=== PATIENT | female | born 2000 | race American Indian/Alaskan Native ===

== ENCOUNTER 2021-10-21 04:11 | Outpatient (CLI) | payer OTHER ==
[2021-10-21 07:17] VITALS: BP 107/68
== END 2021-10-21 07:58 | disposition home or self-care (01) ==
LOC: TRG 04:11 → APU 04:14 → TRG 07:58
PROVIDERS: ATTEND Obstetrics & Gynecology
DX: O62.9 Abnormality of forces of labor, unspecified (principal); O48.0 Post-term pregnancy; Z3A.40 40 weeks gestation of pregnancy; Z87.891 Personal history of nicotine dependence
CPT/HCPCS: Q0177

== ENCOUNTER 2021-10-21 13:40 | Inpatient (IN) | payer OTHER ==
[2021-10-21] MEDS ORDERED: OXYTOCIN 10 UNIT/1 ML INJ IM PRN (14:17)
[2021-10-21] MEDS ORDERED: ACETAMINOPHEN 325 MG TAB PO PRN (14:17)
[2021-10-21] MEDS ORDERED: MINERAL OIL 30 ML ORAL LIQD PO PRN (14:17)
[2021-10-21] MEDS ORDERED: fentaNYL 100 MCG/2 ML INJ IV PRN (14:17)
[2021-10-21] MEDS ORDERED: CARBOPROST TROMETHAMINE 250 MCG/1 ML INJ IM PRN (14:17)
[2021-10-21] MEDS ORDERED: METHYLERGONOVINE MALEATE 0.2 MG/ML VIAL IM PRN (14:17)
[2021-10-21] MEDS ORDERED: LOPERAMIDE 2 MG CAP PO PRN (14:17)
[2021-10-21] MEDS ORDERED: ONDANSETRON 4 MG/2 ML INJ IV PRN (14:17)
[2021-10-21] MEDS ORDERED: BUTORPHANOL 2 MG/1 ML INJ IV PRN (14:17)
[2021-10-21] MEDS ORDERED: TERBUTALINE 1 MG/1 ML INJ SUB-Q PRN (14:17)
[2021-10-21] MEDS ORDERED: miSOPROStol 200 MCG TAB PR PRN (14:17)
[2021-10-21] MEDS ORDERED: ePHEDrine SULFATE 50 MG/1 ML INJ IV PRN ×2 (14:17→16:14)
[2021-10-21] MEDS ORDERED: NALOXONE 0.4 MG/1 ML INJ IV PRN ×2 (14:17→16:14)
[2021-10-21] MEDS ORDERED: LACTATED RINGERS 1,000 ML IV SCH (14:30)
[2021-10-21] MEDS ORDERED: LIDOCAINE (2%) 20 MG/1 ML VIAL 20 ML MDV INFILTRATI ONE ×2 (14:30→21:30)
[2021-10-21] MEDS ORDERED: AMPICILLIN/NS 2 GM/100 ML 2 GM/100 ML BAG IV ONE (15:00)
[2021-10-21] MEDS ORDERED: OXYTOCIN DRIP 30 UNITS/500 ML BAG IV SCH ×2 (15:00)
[2021-10-21 15:57] LABS: Hematocrit 36.5 % (30.3-42.9); Hemoglobin 12.4 gm/dl (10.1-14.3); Mean Corpuscular HGB Conc 34 % (30-34); Mean Corpuscular Volume 95 fl (79-97); Platelet Count 214 K/mm3 (140-440); Red Blood Count 3.83 M/mm3 (3.65-5.03)
[2021-10-21 16:06] LABS: Red Cell Distribution Width 31.1 % (13.2-15.2)
--- NOTE | 2021-10-21 16:16 | Anesthesia Consultation ---
Anesthesia Consult and Med Hx Date of service: 10/21/21 - Airway Anesthetic Teeth Evaluation: Poor ROM Head & Neck: Adequate Mental/Hyoid Distance: Adequate - Pulmonary Exam CTA: Yes - Cardiac Exam Cardiac Exam: RRR - Pre-Operative Health Status ASA Pre-Surgery Classification: ASA2 Proposed Anesthetic Plan: Epidural - Pulmonary Hx Smoking: No Hx Asthma: No COPD: No Hx Pneumonia: No - Cardiovascular System Hx Hypertension: No Hx Cardia Arrhythmia: No Hx Valvular Heart Disease: No Hx Heart Murmur: No Hx Peripheral Vascular Disease: No - Central Nervous System Hx Neuromuscular Disorder: No Hx Seizures: No Hx Back Pain: Yes Hx Psychiatric Problems: No - Gastrointestinal Hx Gastroesophageal Reflux Disease: Yes - Endocrine Hx Renal Disease: No Hx End Stage Renal Disease: No Hx Insulin Dependent Diabetes: No Hx Non-Insulin Dependent Diabetes: No Hx Hypothyroidism: No Hx Hyperthyroidism: No - Hematic Hx Anemia: No Hx Sickle Cell Disease: No - Other Systems Hx Alcohol Use: No Hx Substance Use: No Hx Obesity: No
[2021-10-21] MEDS ORDERED: fentaNYL-BUPIV 2 MCG/ML-0.125% 200 MCG/100 ML BAG EPIDURAL SCH (17:00)
--- NOTE | 2021-10-21 17:28 | History and Physical Report ---
History of Present Illness Date of examination: 10/21/21 Date of admission: 10/21/21 14:57 Chief complaint: contractions History of present illness: Pt is a 21 year old MEGAN 10/20/21 at 40w1d who presents with regular, painful contractions. She denies vaginal bleeding or leakage of fluid. She has had care at [facility] since 18 wks complicated by late entry at 18 wks, iron deficiency anemia, and dilated bowel s/p APA referral. She is GBS positive. Since admission, she has received an epidural and is comfortable. Past History Past Medical History: hematologic disorders (Anemia ) Past Surgical History: no surgical history Family/Genetic History: diabetes, cancer Social history: no significant social history - Obstetrical History Expected Date of Delivery: 10/20/21 Actual Gestation: 40 Week(s) 1 Day(s) : 3 Para: 0 Hx # Term Pregnancies: 0 Number of Pregnancies: 0 Spontaneous Abortions: 2 Induced : 0 Number of Living Children: 0 Medications and Allergies Allergies Allergy/AdvReac Type Severity Reaction Status Date / Time No Known Allergies Allergy Unverified 10/21/21 07:09 Active Meds: Active Medications Acetaminophen (Acetaminophen 325 Mg Tab) 650 mg PO Q4H PRN PRN Reason: Pain, Mild (1-3) Butorphanol Tartrate (Butorphanol 2 Mg/1 Ml Inj) 1 mg IV Q2H PRN PRN Reason: Pain, Moderate(4-6) LABOR PAIN Carboprost Tromethamine (Carboprost Tromethamine 250 Mcg/1 Ml Inj) 250 mcg IM ONCE PRN PRN Reason: Uterine Bleeding Ephedrine Sulfate (Ephedrine Sulfate 50 Mg/1 Ml Inj) 10 mg IV Q2M PRN PRN Reason: Hypotension Ephedrine Sulfate (Ephedrine Sulfate 50 Mg/1 Ml Inj) 10 mg IV Q2M PRN PRN Reason: Hypotension Fentanyl (Fentanyl 100 Mcg/2 Ml Inj) 100 mcg IV Q2H PRN PRN Reason: Pain,Severe (7-10) LABOR PAIN Last Admin: 10/21/21 15:40 Dose: 100 mcg Oxytocin/Sodium Chloride (Pitocin/Ns 30 Unit/500ml) 30 units in 500 mls @ 2 mls/hr IV TITR DANIEL; Protocol Last Admin: 10/21/21 17:08 Dose: 2 ml/hr, 2 mls/hr Lactated Ringer's (Lactated Ringers) 1,000 mls @ 125 mls/hr IV DIRECT DANIEL Last Admin: 10/21/21 15:32 Dose: 125 mls/hr Oxytocin/Sodium Chloride (Pitocin/Ns 30 Unit/500ml) 30 units in 500 mls @ 40 mls/hr IV TITR DANIEL; Protocol Ampicillin Sodium (Ampicillin/Ns 1 Gm/50 Ml) 1 gm in 50 mls @ 100 mls/hr IV Q4H DANIEL; Protocol Fentanyl/Bupivacaine/Sodium Chlor (Fentanyl-Bupiv 2 Mcg/Ml-0.125%) 200 mcg in 100 mls @ 12 mls/hr EPIDURAL TITR DANIEL; Protocol Last Admin: 10/21/21 17:12 Dose: 12 mls/hr Loperamide HCl (Loperamide 2 Mg Cap) 2 mg PO ONCE PRN PRN Reason: give with Hemabate Methylergonovine Maleate (Methylergonovine Maleate 0.2 Mg/Ml Vial) 0.2 mg IM ONCE PRN PRN Reason: Uterine Bleeding Mineral Oil (Mineral Oil 30 Ml Oral Liqd) 30 ml PO QHS PRN PRN Reason: Constipation Misoprostol (Misoprostol 200 Mcg Tab) 800 mcg VT ONCE PRN PRN Reason: Uterine Bleeding Naloxone HCl (Naloxone 0.4 Mg/1 Ml Inj) 0.1 mg IV Q2MIN PRN PRN Reason: Res Rate </= 8 or 02 SAT < 92% Naloxone HCl (Naloxone 0.4 Mg/1 Ml Inj) 0.2 mg IV Q5MIN PRN PRN Reason: Respiratory sedation Ondansetron HCl (Ondansetron 4 Mg/2 Ml Inj) 4 mg IV Q8H PRN PRN Reason: Nausea And Vomiting Oxytocin (Oxytocin 10 Unit/1 Ml Inj) 10 unit IM ONCE PRN PRN Reason: Uterine Bleeding Terbutaline Sulfate (Terbutaline 1 Mg/1 Ml Inj) 0.25 mg SUB-Q ONCE PRN PRN Reason: Hyperstimulation/Hypertonicity Review of Systems All systems: negative - Vital Signs Vital signs: Vital Signs Pulse Pulse Ox 83 99 10/21/21 13:52 10/21/21 13:52 Temp Pulse Resp BP Pulse Ox 98.8 F 64 15 126/72 100 10/21/21 15:46 10/21/21 17:21 10/21/21 15:46 10/21/21 16:42 10/21/21 17:21 - Physical Exam Breasts: Positive: deferred Abdomen: Positive: soft (gravid ) Genitourinary (Female): Positive: normal external genitalia Uterus: Positive: enlarged (gravid ) Extremities: Positive: normal - Obstetrical FHR: auscultation normal Uterine Contraction Monitor Mode: External Cervical Dilatation: 7.5 Cervical Effacement Percentage: 80 station: -2 Uterine Contraction Pattern: Regular Uterine Tone Measurement Phase: Resting Uterine Contraction Intensity: Strong/Firm Results Result Diagrams: 10/21/21 14:55 Abnormal lab results 10/21/21 Range/Units 14:55 RDW 31.1 H (13.2-15.2) % All other labs normal. Assessment and Plan A: IUP at 40w1d Active labor at term GBS term P: Admit to labor and delivery Ampicillin for GBS prophylaxis AROM- clear Routine intrapartum care
--- NOTE | 2021-10-21 17:33 | Progress Note ---
Labor Epidural - Labor Epidural Start Time: 16:32 Stop Time: 16:45 Performed by:: MATILDE RIOS Procedure: Patient is requesting a laboring epidural for laboring pain. Patient IDed, H&P reviewed, all questions and concerns were answered, and consent was signed. Timeout was performed at bedside. Patient in sitting position. Sterile prep and drape was performed. [3] ml of 1% lidocaine skin wheal at L[3]- L [4]. 17- gauge Tuohy epidural needle was advanced to loss of resistance with saline technique 6cm. Single dural perforation via 25 gauge spinal needle placed through the shaft of Epidural needle. Positive clear CSF via spinal needle. Negative CSF negative or blood via Epidural needle. Epidural catheter advanced to [10] centimeters. [NEGATIVE] Aspiration [NEGATIVE] test dose. Negative Paresthesia. Sterile dressing applied. Patient tolerated procedure.
[2021-10-21] MEDS ORDERED: AMPICILLIN/NS 1 GM/50 ML 1 GM/50 ML BAG IV SCH (19:00)
--- NOTE | 2021-10-21 22:07 | Procedure Note ---
OB Delivery Note - Delivery Date of Delivery: 10/21/21 Surgeon: ZEINA MEDLEY Estimated blood loss: other (400 mL) - Vaginal Delivery presentation: vertex Delivery position: OA Intrapartum events: PROM->1hr before delivery, prolonged 2nd stage>2.5hr, mult.variable deceleratio Delivery induction: none Delivery augmentation: rupture of membranes, pitocin Delivery monitor: external FHT, external uterine Route of delivery: Delivery placenta: spontaneous Delivery cord: nuchal cord (tight, doubly clamped, cut and reduced ), 3 umbilical vessels Episiotomy: none Delivery laceration: 1st degree (periurethral, midline, hemostatic without repair ), 2nd degree (perineal repaired with 2-0 Vicryl in a standard fashion ) Delivery repair: vicryl Anesthesia: epidural - A at 1 minute: 7 at 5 minutes: 9 Gender: Female (3270g (7lb 3oz) @ 2133 pm)
[2021-10-22] MEDS ORDERED: diphenhydrAMINE 25 MG CAP PO PRN (01:29)
[2021-10-22] MEDS ORDERED: LANOLIN/ZINC/DIMETHICONE (LANSINOH) 7 GM TP PRN ×2 (01:29)
[2021-10-22] MEDS ORDERED: PROMETHAZINE 25 MG TAB PO PRN (01:29)
[2021-10-22] MEDS ORDERED: HYDROcodone/ACETAMINOPHEN 5-325 MG TAB PO PRN (01:29)
[2021-10-22] MEDS ORDERED: OXYTOCIN DRIP 30 UNITS/500 ML BAG IV SCH (01:29)
[2021-10-22] MEDS ORDERED: WITCH HAZEL/ GLYCERIN PAD TP PRN (01:29)
[2021-10-22] MEDS ORDERED: BENZOCAINE/MENTHOL 20/0.5% TOP SPRAY 56 GM TP PRN (01:29)
[2021-10-22] MEDS ORDERED: ONDANSETRON 4 MG/2 ML INJ IV PRN (01:29)
[2021-10-22] MEDS ORDERED: PROMETHAZINE 25 MG RECT SUPP PR PRN (01:29)
[2021-10-22] MEDS ORDERED: MAGNESIUM HYDROXIDE (MOM) ORAL LIQD UDC PO PRN (01:29)
--- NOTE | 2021-10-22 08:44 | Progress Note ---
Assessment and Plan A:PPD#1 s/p at term P: Continue with routine care Subjective - Subjective Date of service: 10/22/21 Principal diagnosis: PPD#1 s/p at term Interval history: Patient is feeling well and currently resting. She is expressing some mild discomfort and requesting pain medication. She reports no issues with voiding or ambulation. Lochia is decreasing. Patient reports: appetite normal, voiding normally, pain well controlled, ambulating normally [place]: doing well Objective - Vital Signs Latest vital signs: Vital Signs Temp Pulse Resp BP BP Pulse Ox Pulse Ox 10/22/21 05:02 98.4 F 94 H 20 101/55 98 10/22/21 00:30 99 F 88 108/62 100 10/21/21 23:36 85 109/59 10/21/21 22:40 89 85 10/21/21 22:39 94 H 87 10/21/21 22:35 102 H 87 10/21/21 22:34 98 H 85 10/21/21 22:30 98 H 90 10/21/21 22:26 54 L 90 10/21/21 22:25 90 10/21/21 22:20 94 H 90 10/21/21 22:17 92 H 98 10/21/21 22:12 101 H 91 10/21/21 22:07 106 H 90 10/21/21 22:05 109 H 91 10/21/21 22:02 112 H 91 10/21/21 22:00 98.4 F 102 H 18 95 10/21/21 21:59 104 H 92 10/21/21 21:57 100 H 100 10/21/21 21:53 99 H 90 10/21/21 21:52 102 H 100 10/21/21 21:48 92 H 84 10/21/21 21:47 91 H 100 10/21/21 21:42 88 100 10/21/21 21:37 100 H 100 10/21/21 21:32 124 H 91 10/21/21 21:26 100 H 62 L 10/21/21 21:21 89 98 10/21/21 21:20 89 88 10/21/21 21:16 104 H 98 10/21/21 21:11 81 100 10/21/21 21:09 83 87 10/21/21 21:06 76 100 10/21/21 21:01 72 99 08/22/22 20:57 75 90 10/21/21 20:56 76 100 10/21/21 20:51 79 77 L 10/21/21 20:46 94 H 98 10/21/21 20:41 80 97 10/21/21 20:39 79 74 L 10/21/21 20:36 91 H 99 10/21/21 20:31 80 100 10/21/21 20:30 96 H 80 L 10/21/21 20:26 77 99 10/21/21 20:24 92 H 79 L 10/21/21 20:21 94 H 88 10/21/21 20:19 97 H 94 10/21/21 20:16 73 100 10/21/21 20:12 48 L 68 L 10/21/21 20:11 82 99 10/21/21 20:06 75 99 10/21/21 20:05 76 81 L 10/21/21 20:01 72 100 10/21/21 19:56 83 100 10/21/21 19:53 77 83 L 10/21/21 19:51 78 100 10/21/21 19:46 66 99 10/21/21 19:41 84 95 10/21/21 19:36 67 100 10/21/21 19:35 78 86 10/21/21 19:31 74 66 L 10/21/21 19:28 75 73 L 10/21/21 19:26 71 100 10/21/21 19:21 90 99 10/21/21 19:16 78 100 10/21/21 19:14 91 H 81 L 10/21/21 19:11 86 99 10/21/21 19:07 56 L 79 L 10/21/21 19:06 68 100 10/21/21 19:01 106 H 91 10/21/21 19:00 100 10/21/21 18:56 81 100 10/21/21 18:51 67 100 10/21/21 18:46 70 100 10/21/21 18:41 74 100 10/21/21 18:36 84 100 10/21/21 18:31 79 100 10/21/21 18:26 90 100 10/21/21 18:21 73 100 10/21/21 18:16 67 100 10/21/21 18:11 60 100 10/21/21 18:06 60 99 08/22/22 18:01 61 99 10/21/21 17:56 60 100 10/21/21 17:51 60 100 10/21/21 17:46 61 100 10/21/21 17:41 64 99 10/21/21 17:36 63 100 10/21/21 17:31 63 100 10/21/21 17:26 58 L 100 10/21/21 17:21 64 100 10/21/21 17:16 76 100 10/21/21 17:15 72 91 10/21/21 17:11 66 100 10/21/21 17:09 77 89 10/21/21 17:06 64 100 10/21/21 17:01 65 100 10/21/21 16:56 69 100 10/21/21 16:51 67 100 10/21/21 16:46 81 98 10/21/21 16:42 79 126/72 10/21/21 16:41 78 100 10/21/21 16:36 90 100 10/21/21 16:31 87 100 10/21/21 16:26 81 100 10/21/21 16:21 76 99 10/21/21 16:16 74 99 10/21/21 16:13 80 82 L 10/21/21 16:11 83 100 10/21/21 16:06 83 100 10/21/21 16:01 84 99 10/21/21 15:56 83 100 10/21/21 15:51 72 100 10/21/21 15:48 64 89 10/21/21 15:46 98.8 F 72 15 115/60 115/60 98 10/21/21 14:42 84 86 10/21/21 14:37 73 100 10/21/21 14:32 75 99 10/21/21 14:27 79 100 10/21/21 14:22 79 100 10/21/21 14:17 76 100 10/21/21 14:12 75 99 10/21/21 14:08 83 93 10/21/21 14:07 81 99 10/21/21 14:02 78 100 99 10/21/21 13:57 82 99 10/21/21 13:52 83 99 Intake and Output 10/21/21 10/22/21 10/22/21 23:59 07:59 15:59 Intake Total 1.1 360 Output Total 400 300 Balance -398.9 60 Intake: IV 1.1 PITOCin/NS 30 UNIT/500ML 1.1 30 units In 500 ml @ 2 mls/hr IV TITR DANIEL Rx#: [id number] Oral 240 Intake, Free Water 120 Output: Urine 400 300 Indwelling Catheter 400 Void 300 Other: Total, Intake Amount 240 Total, Output Amount 400 300 Estimated Blood Loss 400 - Labs Labs: Abnormal lab results 10/21/21 Range/Units 14:55 RDW 31.1 H (13.2-15.2) %
[2021-10-22] MEDS: IBUPROFEN 600 MG TAB PO SCH ×4 (08:50→23:02)
--- NOTE | 2021-10-22 09:26 | Post Anesthesia Evaluation ---
- Post Anesthesia Evaluation Patient Participated: Yes Airway Patent: Yes Stable Respiratory Function: Yes Nausea/Vomiting: No Temp > 96.8F: Yes Pain Manageable: Yes Adequeate Hydration: Yes Anesthesia Complications: No Block Receding Appropriately: Yes Patient on Ventilator: No
[2021-10-22 11:30] LABS: Hematocrit 34.4 % (30.3-42.9); Hemoglobin 11.4 gm/dl (10.1-14.3)
[2021-10-22] MEDS: PRENATAL VIT27-FE FUMARATE-FOLIC ACID VIT TAB PO SCH (11:41)
[2021-10-22] MEDS: DOCUSATE SODIUM 100 MG CAP PO SCH ×2 (11:41→23:02)
[2021-10-22] MEDS: FERROUS SULFATE 325 MG TAB PO SCH ×2 (11:41→23:02)
[2021-10-22] MEDS ORDERED: TETANUS,DIPH,PERTUSS(ACELL) VACCINE 0.5 ML SYRINGE IM ONE (23:45)
[2021-10-23] MEDS ORDERED: TETANUS,DIPH,PERTUSS(ACELL) VACCINE 0.5 ML SYRINGE IM ONE (06:00)
[2021-10-23] MEDS ORDERED: MEASLES, MUMPS & RUBELLA 12,500 UNIT/0.5 ML VACCINE SUB-Q ONE (06:00)
[2021-10-23] MEDS: IBUPROFEN 600 MG TAB PO SCH ×2 (06:07→12:41)
--- NOTE | 2021-10-23 08:21 | Discharge Summary ---
Providers - Providers Date of Admission: 10/21/21 14:57 Date of discharge: 10/23/21 Attending physician: ZEINA MEDLEY 10/22/21 01:29 Consult to Quarantine Officer [CONS] Routine Reason For Exam: assistance with , SNS Primary care physician: ZEINA MEDLEY Hospitalization Reason for admission: active labor Delivery: Episiotomy: none Laceration: 2nd degree (perineal, healing as expected) Other procedures: none complications: none Discharge diagnosis: IUP at term delivered Oto baby: female Hospital course: Pt is a 21 year old MEGAN 10/20/21 at 40w1d who presents with regular, painful contractions. She denies vaginal bleeding or leakage of fluid. She has had care at [facility] since 18 wks complicated by late entry at 18 wks, iron deficiency anemia, and dilated bowel s/p APA referral. She is GBS positive. Delivered viable female. Met discharge criteria on PPD#2. Condition at discharge: Good Disposition: 01 HOME / SELF CARE / HOMELESS - Discharge Diagnoses (1) Status post normal vaginal delivery Status: Acute Plan - Discharge Medications Prescriptions: Ibuprofen [Motrin 600 MG tab] 800 mg PO Q8H #30 tablet - Provider Discharge Summary Activity: routine, no sex for 6 weeks, no heavy lifting 4 weeks, no strenuous exercise Diet: routine Instructions: routine Additional instructions: [] Smoking cessation referral if applicable(refer to patient education folder for contact #) [] Refer to [facility] Booklet Call your doctor immediately for: * Fever > 100.5 * Heavy vaginal bleeding ( >1 pad per hour) * Severe persistent headache * Shortness of breath * Reddened, hot, painful area to leg or breast * Drainage or odor from incision. * Keep laceration site clean and dry at all times and follow doctor's instructions regarding bathing/showering - Follow up plan Follow up: ZEINA MEDLEY MD [Primary Care Provider] - 6 Weeks
[2021-10-23] MEDS: DOCUSATE SODIUM 100 MG CAP PO SCH (10:25)
[2021-10-23] MEDS: FERROUS SULFATE 325 MG TAB PO SCH (10:25)
[2021-10-23] MEDS: PRENATAL VIT27-FE FUMARATE-FOLIC ACID VIT TAB PO SCH (10:26)
[2021-10-23 13:19] VITALS: BP 109/69
== END 2021-10-23 14:10 | disposition home or self-care (01) | DRG 775 ==
LOC: TRG 13:40 → APU 13:42 → LD 14:56 → TRG 14:57 → LD 14:57 → OB 10-22 00:59
PROVIDERS: ADMIT Obstetrics & Gynecology; ATTEND Obstetrics & Gynecology
PROC: 10E0XZZ Delivery of Products of Conception, External Approach (ICD-10-PCS; principal; 2021-10-21)
PROC: 0KQM0ZZ Repair Perineum Muscle, Open Approach (ICD-10-PCS; 2021-10-21)
PROC: 3E0R3BZ Introduction of Anesthetic Agent into Spinal Canal, Percutaneous Approach (ICD-10-PCS; 2021-10-21)
PROC: 00HU33Z Insertion of Infusion Device into Spinal Canal, Percutaneous Approach (ICD-10-PCS; 2021-10-21)
PROC: 10907ZC Drainage of Amniotic Fluid, Therapeutic from Products of Conception, Via Natural or Artificial Opening (ICD-10-PCS; 2021-10-21)
PROC: 3E0234Z Introduction of Serum, Toxoid and Vaccine into Muscle, Percutaneous Approach (ICD-10-PCS; 2021-10-22)
DX: O42.02 Full-term premature rupture of membranes, onset of labor within 24 hours of rupture (principal); Z37.0 Single live birth; Z3A.40 40 weeks gestation of pregnancy; Z20.822 Contact with and (suspected) exposure to COVID-19; Z23 Encounter for immunization; O99.62 Diseases of the digestive system complicating childbirth; K21.9 Gastro-esophageal reflux disease without esophagitis; O76 Abnormality in fetal heart rate and rhythm complicating labor and delivery; O63.1 Prolonged second stage (of labor); O69.81X0 Labor and delivery complicated by cord around neck, without compression, not applicable or unspecified; O70.1 Second degree perineal laceration during delivery
CPT/HCPCS: 36415; 85014; 85018; 85027; 86850; 86900; 86901; 90471; 90715; G0378; J3490; J0290; J2590; J3010; J7120; Q0177; U0003